=== PATIENT | female | born 1975 | race African-American/Black ===

== ENCOUNTER 2021-12-18 13:00 | Emergency (ER) | payer MEDICARE, OTHER ==
[~2021-12-18] VITALS: Ht 154.9 cm; Wt 53.2 kg
[2021-12-18 13:00] VITALS: BP 106/35
--- NOTE | 2021-12-18 13:31 | PHYS DOC ---
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 Patient is in the ED with a caregiver, the caregiver states patient has history of nausea and vomiting during her menses, she started her menses yesterday, she was given Zofran. States she started vomiting and coughing and they believes she could have aspirated on the vomit. Caregiver states patient was also given a lozenge yesterday, in the process they believe she took a bite and accidentally swallowed her dental. She is missing one of them. Patient denies any abdominal pain. Denies any further nausea or vomiting. Reports ongoing coughing. Review of Systems: Review of Systems: Constitutional: Denies fever or chills. [] Eyes: Denies change in visual acuity. [] HENT: Denies nasal congestion or sore throat. [] Respiratory: Reports coughing, denies shortness of breath Cardiovascular: Denies chest pain or edema. [] GI: Reports accidental ingestion of dental cap, reports nausea and vomiting. Denies abdominal pain, bloody stools or diarrhea. [] : Denies dysuria. [] Musculoskeletal: Denies back pain or joint pain. [] Integument: Denies rash. [] Neurologic: Denies headache, focal weakness or sensory changes. [] Psychiatric: Denies depression or anxiety. [] Above questions are primarily answered by the caregiver Heart Score: C/O Chest Pain: N/A Risk Factors: Risk Factors: DM, Current or recent (<one month) smoker, HTN, HLP, family history of CAD, obesity. Risk Scores: Score 0 - 3: 2.5% MACE over next 6 weeks - Discharge Home Score 4 - 6: 20.3% MACE over next 6 weeks - Admit for Clinical Observation Score 7 - 10: 72.7% MACE over next 6 weeks - Early Invasive Strategies Allergies: Allergies: Allergies Coded Allergies Type Severity Reaction Last Updated Verified adhesive tape Allergy Unknown 12/18/21 Yes fexofenadine Allergy Unknown 12/18/21 Yes pseudoephedrine Allergy Unknown 12/18/21 Yes valproic acid Allergy Unknown 12/18/21 Yes Physical Exam: PE: Constitutional: Well developed, well nourished, no acute distress, non-toxic appearance. [] HENT: Normocephalic, atraumatic, bilateral external ears normal, oropharynx moist, no oral exudates, nose normal. Missing left upper molar dental cap. Eyes: PERRLA, EOMI, conjunctiva normal, no discharge. [] Neck: Normal range of motion, no tenderness, supple, no stridor. [] Cardiovascular:Heart rate regular rhythm, no murmur [] Lungs & Thorax: Bilateral breath sounds clear to auscultation [] Abdomen: Bowel sounds normal, soft, no tenderness, no masses, no pulsatile masses. [] Skin: Warm, dry, no erythema, no rash. [] Back: No tenderness, no CVA tenderness. [] Extremities: Contracted upper extremities, no tenderness, no cyanosis, no clubbing, ROM limited, no edema. [] Neurologic: Alert and oriented X 3, normal motor function, normal sensory function, no focal deficits noted. [] Psychologic: Affect normal, judgement normal, mood normal. [] Current Patient Data: Vital Signs: Vital Signs Date Time Temp Pulse Resp B/P (MAP) Pulse Ox O2 Delivery O2 Flow Rate FiO2 12/18/21 13:00 98.6 93 18 106/35 (58) 100 Room Air 98.6 EKG: EKG: [] Radiology/Procedures: Radiology/Procedures: []PROCEDURE: PORTABLE CHEST 1V Chest AP portable at 1335: Reason for examination: Swallowed dental filling cap. Evaluate for aspiration pneumonia. The heart size is upper normal. Mediastinum is unremarkable. Lung madden show some elevation of the right hemidiaphragm and some linear density at the right lung base which probably reflects some atelectasis. There may also be some increased markings in the retrocardiac left lower lobe. No pleural effusions or pneumothorax are seen. No acute bony abnormalities are present. IMPRESSION: Elevated right hemidiaphragm with some linear atelectasis at the right lung base. Increased markings in the retrocardiac left lower lobe which could reflect aspiration/infiltrates. Recommend clinical correlation follow-up. Soft tissue neck 2 views: The airway is patent with no stenosis evident. No abnormality seen at the epiglottis. Prevertebral soft tissues are normal. There does appear to be some calcification in the thyroid and laryngeal cartilage. There are degenerative changes with hypertrophic spurring anteriorly from C3 through C6. IMPRESSION: Calcification in the thyroid and laryngeal cartilage. No radiopaque foreign bodies identified. Abdomen single view: Comparison is made to previous study dated 09/22/2008. Electronic pump device is present in the right lower quadrant with a small catheter extending at midline to the level of the T10 vertebral body. No gross organomegaly is seen. Psoas muscles are symmetric. Bowel gas pattern shows a moderate amount of fecal material in colon. Small metallic foreign body is present in the right pelvis measuring approximately 1.4 cm in greatest dimension. No other radiopaque foreign bodies are identified. Small phleboliths are seen in the pelvis. There does appear to be a thoracolumbar scoliosis. IMPRESSION: 1.4 cm radiopaque foreign body in the right pelvis. This could be outside of the pelvis. Recommend clinical correlation. Large amount of fecal material in colon. Electronically signed by: Lorna Carpenter MD (12/18/2021 2:19 PM) [facility] DICTATED and SIGNED BY: LORNA CARPENTER MD DATE: 12/18/21 4500 Course & Med Decision Making: Course & Med Decision Making Pertinent Labs and Imaging studies reviewed. (See chart for details) This a 46-year-old female patient with history of brain injury presented to the ED today to be evaluated for aspiration pneumonia and accidental ingestion of her dental cap that occurred yesterday Chest x-ray noted for left lower lobe infiltrate/aspiration pneumonia, neck soft tissue x-rays are negative, KUB noted for 1.4 cm radiopaque foreign body in the right pelvis. This could be outside of the pelvis.Large amount of fecal material in colon. Discharged on Levaquin.Informed We were to look at patient's stools and site for the dental cap to ensure it is defecated. Also informed the caregiver to consider giving patient medications to help relieve her constipation. Discharge to home follow-up with PCP in the course of this week Serjio Disclaimer: Serjio Disclaimer: This electronic medical record was generated, in whole or in part, using a voice recognition dictation system. Departure Departure Impression: Primary Impression: Aspiration pneumonia Qualified Codes: J69.0 - Pneumonitis due to inhalation of food and vomit Additional Impressions: Ingestion of foreign body Qualified Codes: T18.9XXA - Foreign body of alimentary tract, part unspecified, initial encounter Constipation Qualified Codes: K59.00 - Constipation, unspecified Disposition: HOME / SELF CARE / HOMELESS Condition: STABLE Referrals: KENDRICK CARRENO MD (PCP) follow up in the course of this week Patient Instructions: Aspiration Pneumonia, Constipation, Adult, Swallowed Foreign Body, Adult Additional Instructions: Kaya has aspiration pneumonia. Ensure she completes the prescribed antibiotics. She was also noted to have the dental cap in the her lower pelvis region, please check her stools daily to ensure she defecates it. She also noted to be constipated. Please ensure you give her some medicine like magnesium citrate to help clear her bowels. Follow-up with her primary care doctor in the course of this week Scripts Levofloxacin (LEVOFLOXACIN) 500 Mg Tablet 1 TAB PO DAILY, #7 TAB Prov: EDA MIMS APRN 12/18/21 EDA MIMS APRN December 18, 2021 13:31
--- NOTE | 2021-12-18 14:22 | RAD ---
Chest AP portable at 1335: Reason for examination: Swallowed dental filling cap. Evaluate for aspiration pneumonia. The heart size is upper normal. Mediastinum is unremarkable. Lung madden show some elevation of the r ight hemidiaphragm and some linear density at the right lung base which probably reflects some atelec tasis. There may also be some increased markings in the retrocardiac left lower lobe. No pleural effu sions or pneumothorax are seen. No acute bony abnormalities are present. IMPRESSION: Elevated right hemidiaphragm with some linear atelectasis at the right lung base. Increased markings in the retrocardiac left lower lobe which could reflect aspiration/infiltrates. Re commend clinical correlation follow-up. Soft tissue neck 2 views: The airway is patent with no stenosis evident. No abnormality seen at the epiglottis. Prevertebral so ft tissues are normal. There does appear to be some calcification in the thyroid and laryngeal cartil age. There are degenerative changes with hypertrophic spurring anteriorly from C3 through C6. IMPRESSION: Calcification in the thyroid and laryngeal cartilage. No radiopaque foreign bodies identified. Abdomen single view: Comparison is made to previous study dated 09/22/2008. Electronic pump device is present in the right lower quadrant with a small catheter extending at midl ine to the level of the T10 vertebral body. No gross organomegaly is seen. Psoas muscles are symmetri c. Bowel gas pattern shows a moderate amount of fecal material in colon. Small metallic foreign body is present in the right pelvis measuring approximately 1.4 cm in greatest dimension. No other radiopa que foreign bodies are identified. Small phleboliths are seen in the pelvis. There does appear to be a thoracolumbar scoliosis. IMPRESSION: 1.4 cm radiopaque foreign body in the right pelvis. This could be outside of the pelvis. Recommend cl inical correlation. Large amount of fecal material in colon. Electronically signed by: Lorna Julien MD (12/18/2021 2:19 PM) [facility]
[2021-12-18] MEDS ORDERED: LEVO500T9 PO (14:38)
== END 2021-12-18 15:19 | disposition home or self-care (01) ==
LOC: ER 13:00
DX: T18.9XXA Foreign body of alimentary tract, part unspecified, initial encounter (principal); J69.0 Pneumonitis due to inhalation of food and vomit; R11.2 Nausea with vomiting, unspecified; Z88.8 Allergy status to other drugs, medicaments and biological substances; Y92.89 Other specified places as the place of occurrence of the external cause
CPT/HCPCS: 70360; 71045; 74018; 99284